=== PATIENT | female | born 1975 | race Asian ===

== ENCOUNTER 2021-08-15 22:01 | Emergency (ER) | payer BC ==
[~2021-08-15] VITALS: Ht 165.1 cm; Wt 59.0 kg
[2021-08-15 22:06] VITALS: BP_SYST 98
--- NOTE | 2021-08-15 22:09 | NUR ---
Patient to ER bed 07 to gown for evaluation. Side rails up.
--- NOTE | 2021-08-15 22:10 | NUR ---
LULU Byrd at bedside examining patient.
[2021-08-15] MEDS ORDERED: SULF5DRO EACH EYE (22:39)
--- NOTE | 2021-08-15 22:50 | NUR ---
Patient given written and verbal discharge instructions and verbalizes understanding. ER MD discussed with patient the results and treatment provided. Patient in stable condition. ID arm band removed. Rx of Sulfacetamide Sodium given and list of 24 hour pharmacies given as per pt request. Patient educated on pain management and to follow up with PMD. Opportunity for questions provided and answered. Medication side effect fact sheet provided.
[2021-08-15 23:00] VITALS: BP_SYST 110
== END 2021-08-15 22:50 | disposition home or self-care (01) ==
LOC: SED 22:01
DX: H10.9 Unspecified conjunctivitis (principal)
CPT/HCPCS: 99283